=== PATIENT | female | born 1980 ===

== ENCOUNTER 2019-08-03 14:12 | Outpatient (REF) | payer OTHER, SELFPAY ==
[2019-08-07 20:00] LABS: SARS-CoV-2 RNA Undetected (Undetected); SARS-CoV-2 Specimen Source Nasopharynx
== END 2019-08-03 14:32 ==
LOC: NCHCN 14:12
PROVIDERS: Visit Provider Nurse Practitioner Family
DX: Z20.828 Contact with and (suspected) exposure to other viral communicable diseases (principal)
CPT/HCPCS: U0003

== ENCOUNTER 2020-02-23 20:38 | Outpatient (REF) | payer OTHER, SELFPAY ==
[2020-02-23 18:49] LABS: Bilirubin Small (Negative); Blood Large (Negative); Clarity Cloudy (Clear); Glucose Negative (Negative); Ketones 40 mg/dL (Negative); Leukocyte Esterase Small (Negative); Nitrite Positive (Negative); Specific Gravity 1.025 (1.005-1.025)
[2020-02-23 19:24] LABS: Bacteria Many HPF (Negative); C & S Indicated? C&S Done As Ordered; Casts Negative LPF (Negative); Crystals Negative HPF (Negative); Epithelial Cells Few HPF (Negative); Mucus Negative (Negative); WBC 20-50 HPF (0-5)
[2020-02-23 19:57] LABS: Abs Immature Grans 0.05 10^3/uL (0.0-0.06); Absolute Eosinophil Count 0.01 10^3/uL (0.0-0.7); Absolute Lymphocyte Count 1.44 10^3/uL (1.2-3.4); Absolute Monocyte Count 1.45 10^3/uL (0.1-0.8); Basophils % 0.2; Eosinophils % 0.1; HCT 37.4 % (36.0-46.0); HGB 12.4 g/dL (11.2-15.7); Immature Grans % 0.4; Lymphocytes % 11.3; MCH 29.9 pg (27.0-33.0); MCHC 33.2 % (32.0-36.0); MCV 90.1 fL (80-95); MPV 10.7 fL (8.0-11.0); Monocytes % 11.4; Neutrophils % 76.6; Nucleated RBC 0 %; Platelet Count 285 10^3/uL (130-400); RBC 4.15 10^6/uL (3.93-5.22); RDW 11.7 % (11.7-14.6); RDW-SD 38.4 fL; WBC 12.74 10^3/uL (4.4-10.8)
[2020-02-23 20:08] LABS: Anion Gap 11.2 mmol/L (3-11); BUN 13 mg/dL (7-18); CO2 24.8 mmol/L (21.0-32.0); CREATININE 1.14 mg/dL (0.55-1.02); Calcium 8.4 mg/dL (8.5-10.1); Chloride 96 mmol/L (98-107); Estimated GFR 53.34 (mL/min/1.73m2); Glucose 105 mg/dL (74-106); Potassium 3.3 mmol/L (3.5-5.1); Sodium 132 mmol/L (136-145); TSH (W/Ref FT4) 1.19 uIU/mL (0.36-3.74)
[2020-02-23 20:09] LABS: HCG Quant, Pregnancy < 1 mIU/mL (1-3)
[2020-02-23 20:11] LABS: Absolute Basophil Count 0.03 10^3/uL (0.0-0.2); Absolute Neutrophil Count 9.76 10^3/uL (1.2-6.7)
== END 2020-02-23 20:58 ==
LOC: NCHCN 20:38
PROVIDERS: Visit Provider Family Medicine
DX: N92.0 Excessive and frequent menstruation with regular cycle (principal)
CPT/HCPCS: 80048; 87077; 81003; 81015; 84443; 84702; 85025; 87086; 87186